=== PATIENT | female | born 1945 | race Caucasian/White ===

== ENCOUNTER 2017-07-31 16:00 | Outpatient (RCR) | payer MEDICARE, SELFPAY ==
--- NOTE | 2017-07-11 10:02 | PT.OTN ---
Current Diagnoses Pain in left knee (07/11/17) On July 10, 2017 our therapy services consisting of Speech, Occupational, and Physical therapy transitioned from [employer] electronic documentation system to a new [employer] electronic system. All documentation prior to July 10 can be found under [employer] saved data. From July 10 forward, all medical record documentation will be in [employer].
--- NOTE | 2017-07-11 17:59 | PT.OTN ---
Current Diagnoses Pain in left knee (07/11/17) Physical Therapy Treatment Note PT-OP-A Visit Information Start: 07/11/17 10:21 Freq: Status: Active Protocol: Activity Type Activity Date Activity User E-Sign Co-Sign Detail Recorded Client Recorded Date Recorded By Document 07/11/17 14:26 GGD [email or web address] 07/11/17 14:30 GGD 07/11/17 14:26 Out-Patient Physical Therapy Visit Information [Visit Information] -Visit Type Treatment Note -Visit Note 03/21 visit for g-codes Date of injury 05/10/17 RE -eval due 07/17/17 -Visit Start Time 13:45 -Visit Stop Time 14:26 -Total Visit Minutes 41 -Visit Number 11 -Number of UC ARCHITECT Visits 1 [Evaluation Information] -Evaluation Date 05/23/17 PT-OP-C Subjective Start: 07/11/17 10:21 Freq: Status: Active Protocol: Activity Type Activity Date Activity User E-Sign Co-Sign Detail Recorded Client Recorded Date Recorded By Document 07/11/17 14:00 GGD [email or web address] 07/11/17 17:55 GGD 07/11/17 14:00 OP-PT Subjective [Patient Comments] -Patient Comments Pt states her knee is doing better. She having less pain with gardening and need less UE assistance with getting up off floor. -Patient Reported Progress Improving OP-PT Pain Assessment [Pain Assessment Grid] -Paper Pain Assessment Grid Completed No [Location] Left Knee -Intensity 4 -Scale Used Numeric (1 - 10 ) -Description Sharp Tender -Frequency Rarely -Variations/Patterns 0/10 current pain level -Other Pain Aggravating Factors Kneeling -Pain Alleviating Factors Position [Comments] -Pain Comments Pt current pain 0/10 PT-OP-Q Treatments Start: 07/11/17 10:21 Freq: Status: Active Protocol: Activity Type Activity Date Activity User E-Sign Co-Sign Detail Recorded Client Recorded Date Recorded By Document 07/11/17 14:00 GGD [email or web address] 07/11/17 17:55 GGD 07/11/17 14:00 Cardio Equipment [Recumbent Stepper (Sci-Fit)] -Duration (Minutes) 6 -Resistance 2 Gym Equipment [Cable Column (Body Solid)] Leg Extension -Resistance 30-50 -Reps/Time 3 x 10 [Shuttle Recovery] Unilateral Squats -Resistance 50 -Shuttle Recovery Platform Stable -Reps/Time 20 Bilateral Squats -Resistance 125 -Shuttle Recovery Platform Stable -Reps/Time 30 Therapeutic Exercises [Standing Exercises] 2 -Standing Exercise Name Hamstring stretch -Side bilateral -Reps/Minutes 2 -Comments standing stair 1 -Standing Exercise Name Lunges forward -Side bilateral -Equipment Used rail for balance -Reps/Minutes 10 PT-OP-R Modalities Start: 07/11/17 10:21 Freq: Status: Active Protocol: Activity Type Activity Date Activity User E-Sign Co-Sign Detail Recorded Client Recorded Date Recorded By Document 07/11/17 14:00 GGD [email or web address] 07/11/17 17:55 GGD 07/11/17 14:00 Ultrasound Therapy [Treatment] Left Lateral Knee -Treatment Duration (minutes) 8 -Patient Position Supine -Coupling Medium Ultrasound Gel -Frequency Setting (mHz) 3 -Mode Setting Continuous -Intensity Setting (w/cm2) 1.5 -Patient Tolerance Good PT-OP-T Assessment and Plan Start: 07/11/17 10:21 Freq: Status: Active Protocol: Activity Type Activity Date Activity User E-Sign Co-Sign Detail Recorded Client Recorded Date Recorded By Document 07/11/17 14:00 GGD [email or web address] 07/11/17 17:55 GGD 07/11/17 14:00 Physical Therapy Assessment [Assessment Summary] -Assessment Pt progressing with strength and pain control. She has improve tolerance to home activities . She did need cues for lunges technique. Physical Therapy Plan [Frequency and Duration] -Frequency of Treatment 2x/Week -Duration of Treatment 8 weeks -Plan of Care Start Date 05/23/17 -Plan of Care End Date 07/17/17 [Next Visit Focus/Plan] -Next Visit Plan Progress under current plan of care. Standing squats and LE strengthening.
--- NOTE | 2017-08-06 10:20 | PT.OTN ---
Current Diagnoses Pain in left knee (07/31/17) Physical Therapy Treatment Note PT-OP-A Visit Information Start: 07/11/17 10:21 Freq: Status: Active Protocol: Document 08/01/17 07:20 EA (Rec: 08/06/17 10:18 EA [email or web address]) Out-Patient Physical Therapy Visit Information Visit Information Visit Type Treatment Note Total Visit Minutes 30 Visit Number 13 PT-OP-C Subjective Start: 07/11/17 10:21 Freq: Status: Active Protocol: Document 08/01/17 07:20 EA (Rec: 08/06/17 10:18 EA [id number]) OP-PT Subjective Patient Comments Patient Comments Patient reports able to kneel down to left knee with no discomofort; states she is now ready to discharge to PT and would like to cont. with HEP. Patient Reported Progress Improving Patient Questionnaires Lower Extremity Functional Scale LEFS Impairment 1 to 19% Impaired (Score 63-79 ) PT-OP-Q Treatments Start: 07/11/17 10:21 Freq: Status: Active Protocol: Document 08/01/17 07:20 EA (Rec: 08/06/17 10:18 EA [id number]) Cardio Equipment Recumbent Stepper (Sci-Fit) Duration (Minutes) 5 Resistance 3 Therapeutic Exercises Standing Exercises 3 Standing Exercise Name half kneeling: hip flexor stretch and kneel tolerance Reps/Minutes 3 reps x 1 minute each 2 Standing Exercise Name Hamstring stretch Side bilateral Reps/Minutes 2 Comments standing stair 1 Standing Exercise Name Lunges forward Side bilateral Equipment Used rail for balance Reps/Minutes 10 Self-Care/Home Management Treatment Education Patient Education Home Exercise Program Pain Management Posture PT-OP-R Modalities Start: 07/11/17 10:21 Freq: Status: Active Protocol: Document 07/11/17 14:00 GGD (Rec: 07/11/17 17:55 GGD [email or web address]) Ultrasound Therapy Treatment Left Lateral Knee Treatment Duration (minutes) 8 Patient Position Supine Coupling Medium Ultrasound Gel Frequency Setting (mHz) 3 Mode Setting Continuous Intensity Setting (w/cm2) 1.5 Patient Tolerance Good PT-OP-T Assessment and Plan Start: 07/11/17 10:21 Freq: Status: Active Protocol: Document 08/01/17 07:20 EA (Rec: 08/06/17 10:18 EA [id number]) Physical Therapy Assessment Progress Towards Goals Progress Towards Goals Progressing Toward Goals Progress Comments Goals reached Assessment Summary Assessment Patient is discharge today as goals reached Physical Therapy Plan Discharge Physical Therapy Discharge Reasons Goals Met Please Sign and Return: I have reviewed this Plan of Care and certify that the skilled therapy services above are required to meet the patient???s needs. Physician Signature Date Printed Name and Credentials Clinical Instructor Signature Printed Name and Credentials
--- NOTE | 2017-08-06 10:20 | PT.OPDS ---
Current Diagnoses Pain in left knee (07/31/17) Provider Visit Care Team Role Provider Type JENNIFER Hernandez Attending Provider Non-Staff Family Provider Primary Care Provider Specialty: Medical Address: [address] [place] [address] [place], [address] Email: Visit Number Visit Number 11 Discharge Summary PT-OP-C Subjective Start: 07/11/17 10:21 Freq: Status: Active Protocol: Document 08/01/17 07:20 EA (Rec: 08/06/17 10:18 EA [email or web address]) OP-PT Subjective Patient Comments Patient Comments Patient reports able to kneel down to left knee with no discomofort; states she is now ready to discharge to PT and would like to cont. with HEP. Patient Reported Progress Improving Patient Questionnaires Lower Extremity Functional Scale LEFS Impairment 1 to 19% Impaired (Score 63-79 ) PT-OP-T Assessment and Plan Start: 07/11/17 10:21 Freq: Status: Active Protocol: Document 08/01/17 07:20 EA (Rec: 08/06/17 10:18 EA [id number]) Physical Therapy Assessment Progress Towards Goals Progress Towards Goals Progressing Toward Goals Progress Comments Goals reached Assessment Summary Assessment Patient is discharge today as goals reached Physical Therapy Plan Discharge Physical Therapy Discharge Reasons Goals Met Please Sign and Return: I have reviewed this Plan of Care and certify that the skilled therapy services above are required to meet the patient???s needs. Physician Signature Date Printed Name and Credentials Clinical Instructor Signature Printed Name and Credentials
== END 2017-08-23 09:17 ==
LOC: PHYS 16:00
PROVIDERS: Family Provider Nurse Practitioner Family; PCP Nurse Practitioner Family; Visit Provider Nurse Practitioner Family
DX: M25.562 Pain in left knee (principal)
CPT/HCPCS: 97035; 97110; 97535

== ENCOUNTER → 2022-09-20 15:58 | Outpatient (CLI) | payer MEDICARE, SELFPAY ==
[2022-09-20 17:19] LABS: Add Manual Diff / Slide Review NO; Basophils Absolute Auto 100 /uL (0-100); Basophils Percent Auto 0.7 % (0-2); Eosinophils Absolute Auto 100 /uL (0-450); Eosinophils Percent Auto 1.5 % (2-4); Hemoglobin 13.2 g/dL (12.0-16.0); Lymphocytes Absolute Auto 1800 /uL (1100-4500); Mean Corpuscular HGB Conc 33.8 % (30-36); Mean Corpuscular Volume 79.9 fL (80-100); Monocytes Absolute Auto 600 /uL (0-900); Monocytes Percent Auto 7.7 % (3-14); Neutrophils Absolute Auto 5300 /uL (1500-7000); Neutrophils Percent Auto 67.1 % (50-75); Platelet Count 268 X10^3/uL (150-400); Red Blood Cell Count 4.89 X10^6/uL (4.0-5.2); Red Cell Distribution Width 14.8 % (11.6-14.8)
[2022-09-20 18:13] LABS: HEMOLYSIS < 15 (0-50); Iron 46 ug/dL (37-170)
[2022-09-20 18:23] LABS: Percent Iron Saturation 11 % (15-50); Total Iron Binding Capacity 401 ug/dL (265-497); Transferrin 287 mg/dL (206-381)
== END ==
PROVIDERS: Family Provider Nurse Practitioner Family; PCP Internal Medicine; Referring Provider Internal Medicine Cardiovascular Disease; Visit Provider Internal Medicine Cardiovascular Disease
DX: I48.0 Paroxysmal atrial fibrillation (principal)
CPT/HCPCS: 36415; 83540; 83550; 85025